=== PATIENT | male | born 1960 | race Caucasian/White ===

== ENCOUNTER 2024-05-08 08:43 | Outpatient (REF) | payer MEDICARE, SELFPAY ==
--- NOTE | ~2024-05-08 | CT_ITS ---
EXAMINATION: CT CHEST, ABDOMEN AND PELVIS WITH CONTRAST CLINICAL INFORMATION: Abnormal weight loss. COMPARISON: Prior CT examinations, most recently 01/20/2022; renal ultrasound dated 11/08/2022. TECHNIQUE: Multidetector volumetric imaging was performed from the thoracic inlet through the pubic symphysis following administration of 85 mL Omnipaque 350 intravenous contrast. Sagittal and coronal reformatted images were obtained on the technologist workstation. This CT examination was performed using dose optimization techniques as appropriate, variously including the following: *Automated exposure control. *Adjustment of mA and/or kV according to patient size (this includes techniques or standardized protocols for targeted exams where dose is matched to indication/reason for exam, i.e., extremities or head). *Use of iterative reconstruction technique. DLP: 807 mGy-cm. FINDINGS: CHEST: LUNGS: There are moderate to severe centrilobular emphysematous changes. No nodule, mass, infiltrate or groundglass opacity is seen. There is mild generalized small airway thickening. The central airways appear patent. MEDIASTINUM: The thyroid is unremarkable. There is no thoracic aortic aneurysm or dissection. There are mild atherosclerotic calcifications of the great vessel origins and thoracic aorta. No mediastinal or hilar lymphadenopathy is seen. CORONARY ARTERY ATHEROSCLEROSIS: Mild. PERICARDIUM/PLEURA: There is no significant effusion. No pleural mass or thickening. CHEST WALL/AXILLA: Unremarkable. ABDOMEN/PELVIS: LIVER, GALLBLADDER, BILIARY TREE: The liver is normal in size, shape and generally diminished in attenuation. No focal hepatic lesion or biliary ductal dilatation is present. The gallbladder is unremarkable with no evidence of radiopaque gallstones, gallbladder wall thickening, or pericholecystic inflammatory changes. PANCREAS: Unremarkable. SPLEEN: Unremarkable. ADRENAL GLANDS: Unremarkable. KIDNEYS AND URETERS: The kidneys are normal in size, shape, and attenuation. No hydronephrosis or hydroureter or calculi seen. Again, there are multiple low-attenuation bilateral renal cysts, some too small for full characterization with CT. These require no imaging follow-up. No perinephric stranding. BLADDER: Unremarkable. GASTROINTESTINAL TRACT: There is mild diverticulosis, without acute diverticulitis. There is sigmoid wall thickening, most pronounced distally (3:73). No obstruction, free intraperitoneal air or abscess is seen. The vermiform appendix appears normal. ABDOMINAL WALL: There are small to moderate fat-containing umbilical and bilateral inguinal hernias. LYMPH NODES: Normal. VASCULAR: A patent aortobiiliac stent graft is noted. No abdominal aortic aneurysm or dissection is seen. PELVIC VISCERA: The prostate and seminal vesicles are unremarkable. OSSEOUS STRUCTURES: There is multi-level thoracic and, to a lesser extent, lumbar spondylosis. No acute or aggressive osseous abnormality is seen. CT/CT abdomen pelvis w IV con IMPRESSION: 1. There is moderately severe pulmonary centrilobular emphysema. 2. No nodule, mass, infiltrate or groundglass opacity is seen. 3. There is no thoracic lymphadenopathy or effusion. 4. There is hepatic steatosis. 5. There is mild diverticulosis, without acute diverticulitis. There is sigmoid wall thickening versus pseudothickening from focal contraction. This could be further evaluated with a barium enema. As well, recommend correlation with the patient's most recent colonoscopy. 6. There are small to moderate fat-containing umbilical and bowing or hernias. 7. There is multi-level thoracolumbar spondylosis. No acute or aggressive osseous finding is seen. Electronically signed by: Faustino Shaffer MD 05/27/2024 11:39 PM EST
[2024-05-08] MEDS: iohexoL 350 MG/ML 100 ML INFUS..BTL IV (11:32)
[2024-05-08] MEDS: Barium Sulfate Oral (Vanilla) 450 ML ORAL.SUSP PO ×2 (11:33→11:39)
[2024-05-09 06:14] LABS: GFR POC > 60
== END 2024-05-08 08:44 | disposition home or self-care (01) ==
LOC: HO.CT 08:43
PROVIDERS: PCP Internal Medicine; Visit Provider Physician Assistant Medical
DX: R63.4 Abnormal weight loss (principal); F17.200 Nicotine dependence, unspecified, uncomplicated
CPT/HCPCS: 71260; 74177; 82565; Q9967